=== PATIENT | male | born 1950 | race African-American/Black ===

== ENCOUNTER 2018-01-23 13:06 | Inpatient (IN) | payer OTHER ==
[2018-01-23 16:59] LABS: ADD MAN DIFF? NO
[2018-01-23 17:02] LABS: WHITE BLOOD COUNT 9.2 10^3/ul (4.8-10.8)
[2018-01-23 17:02] LABS: BASOPHILS % 0.2 % (0.0-2.0); EOSINOPHILS # 0.1 10^3/ul (0.0-0.5); EOSINOPHILS % 1.1 % (0.0-7.0); HEMATOCRIT 39.3 % (42.0-52.0); HEMOGLOBIN 12.9 g/dl (14.0-18.0); LYMPHOCYTES # 1.5 10^3/ul (0.8-2.9); LYMPHOCYTES % 16.3 % (15.0-51.0); MEAN CORPUSCULAR HEMOGLOBIN 30.2 pg (29.0-33.0); MEAN CORPUSCULAR HGB CONC 32.8 g/dl (32.0-37.0); MEAN PLATELET VOLUME 10.3 fl (7.4-10.4); MONOCYTE # 0.8 10^3/ul (0.3-0.9); MONOCYTES % 9.1 % (0.0-11.0); NEUTROPHIL # 6.7 10^3/ul (1.6-7.5); PLATELET COUNT 192 10^3/UL (140-415); RED BLOOD COUNT 4.27 10^6/ul (4.70-6.10); RED CELL DISTRIBUTION WIDTH 13.4 % (11.5-14.5)
[2018-01-23 17:24] LABS: ALANINE AMINOTRANSFERASE 23 IU/L (13-69); ALBUMIN/GLOBULIN RATIO 1.02; ALKALINE PHOSPHATASE 94 IU/L (42-121); ANION GAP 10 (5-13); ASPARTATE AMINO TRANSFERASE 27 IU/L (15-46); BILIRUBIN,INDIRECT 0.1 mg/dl (0-1.1); BILIRUBIN,TOTAL 0.1 mg/dl (0.2-1.3); BLOOD UREA NITROGEN 48 mg/dl (7-20); CALCIUM 8.9 mg/dl (8.4-10.2); CARBON DIOXIDE 26 mmol/L (21-31); CHLORIDE 105 mmol/L (97-110); Estimated GFR 21 mL/min (>60); GLUCOSE 125 mg/dl (70-220); LIPASE 84 U/L (23-300); POTASSIUM 5.3 mmol/L (3.5-5.1); SODIUM 141 mmol/L (135-144); TOTAL PROTEIN 7.9 g/dl (6.1-8.1)
[2018-01-23] MEDS: SOD CHLORIDE 0.9% 500 ML IV (17:27)
[2018-01-23] MEDS: ENALAPRILAT 1.25 MG INJ IV (17:27)
[2018-01-23 17:35] LABS: TROPONIN-I < 0.012 ng/ml (0.000-0.120)
[2018-01-23] MEDS: HYDROCHLOROTHIAZIDE 25 MG TAB PO (17:39)
[2018-01-23] MEDS: niCARdipine-NS 0.1MG/ML DRIP 200 ML IV ×2 (18:52→23:55)
[2018-01-23 19:15] LABS: HAAIG REFLEX REFLEX FILED
[2018-01-23 19:26] LABS: HEMOGLOBIN A1C 5.2 % (0-5.9)
[2018-01-23] MEDS ORDERED: BISACODYL (EC) 5 MG TAB PO (19:30)
[2018-01-23] MEDS ORDERED: DOCUSATE SODIUM 100 MG CAP PO (19:30)
[2018-01-23] MEDS ORDERED: NITROGLYCERIN (SL) 0.4 MG TAB SL (19:30)
[2018-01-23] MEDS ORDERED: BISACODYL 10 MG SUPP PR (19:30)
[2018-01-23] MEDS ORDERED: MAGNESIUM HYDROXIDE 30ML CUP PO (19:30)
[2018-01-23] MEDS ORDERED: ACETAMINOPHEN 650 MG SUPP PR (19:30)
[2018-01-23] MEDS ORDERED: ACETAMINOPHEN 325 MG TAB PO (19:30)
[2018-01-23] MEDS ORDERED: ONDANSETRON 4 MG INJ IV (19:30)
[2018-01-23 20:00] LABS: HEPATITIS B SURFACE ANTIGEN NEGATIVE (NEGATIVE)
[2018-01-23 20:18] LABS: HEPATITIS B CORE ANTIBODY REACTIVE (NEGATIVE); HEPATITIS C VIRAL ANTIBODY REACTIVE (NEGATIVE)
[2018-01-23] MEDS ORDERED: INSULIN ASPART [NOVOLOG] 3 ML PEN SC (21:00)
[2018-01-23 21:48] LABS: SODIUM,URINE RANDOM 135 mmol/L (30-90)
[2018-01-23 21:48] LABS: CREATININE,URINE RANDOM 33.24 mg/dl (20-370)
[2018-01-23 21:49] LABS: CREATININE,URINE RANDOM 33.31 mg/dl (20-370); PROTEIN/CREAT RATIO 1.65 RATIO
[2018-01-23] MEDS: NA POLYST SULFON 15 GM/60 ML BTL PO (22:25)
[2018-01-23] MEDS: SOD CHLORIDE 0.45% 1,000 ML IV (22:26)
[2018-01-24] MEDS: ACCU-CHEK XX (02:33)
[2018-01-24] MEDS: PANTOPRAZOLE 40 MG INJ IV (06:04)
[2018-01-24 06:51] LABS: ADD MAN DIFF? NO
[2018-01-24 06:55] LABS: BASOPHILS % 0.3 % (0.0-2.0); EOSINOPHILS # 0.2 10^3/ul (0.0-0.5); EOSINOPHILS % 2.7 % (0.0-7.0); HEMATOCRIT 32.8 % (42.0-52.0); HEMOGLOBIN 10.9 g/dl (14.0-18.0); LYMPHOCYTES # 1.4 10^3/ul (0.8-2.9); MEAN CORPUSCULAR HEMOGLOBIN 30.3 pg (29.0-33.0); MEAN CORPUSCULAR HGB CONC 33.2 g/dl (32.0-37.0); MEAN CORPUSCULAR VOLUME 91.1 fl (82.0-101.0); MEAN PLATELET VOLUME 10.7 fl (7.4-10.4); MONOCYTE # 0.5 10^3/ul (0.3-0.9); MONOCYTES % 6.7 % (0.0-11.0); NEUTROPHIL # 4.9 10^3/ul (1.6-7.5); PLATELET COUNT 204 10^3/UL (140-415); RED CELL DISTRIBUTION WIDTH 13.4 % (11.5-14.5)
[2018-01-24 07:03] LABS: ALANINE AMINOTRANSFERASE 27 IU/L (13-69); ALBUMIN 3.6 g/dl (3.3-4.9); ALBUMIN/GLOBULIN RATIO 1.05; ALKALINE PHOSPHATASE 80 IU/L (42-121); ANION GAP 9 (5-13); ASPARTATE AMINO TRANSFERASE 35 IU/L (15-46); BILIRUBIN,INDIRECT 0.1 mg/dl (0-1.1); BILIRUBIN,TOTAL 0.1 mg/dl (0.2-1.3); BLOOD UREA NITROGEN 43 mg/dl (7-20); CALCIUM 8.4 mg/dl (8.4-10.2); CARBON DIOXIDE 26 mmol/L (21-31); CHLORIDE 109 mmol/L (97-110); CREATININE 3.02 mg/dl (0.61-1.24); Estimated GFR 25 mL/min (>60); GLUCOSE 89 mg/dl (70-220); POTASSIUM 4.2 mmol/L (3.5-5.1); SODIUM 144 mmol/L (135-144)
[2018-01-24] MEDS: ENOXAPARIN 30 MG/0.3 ML SYG SC (08:27)
[2018-01-24] MEDS: NIFEdipine (XL) 90 MG TAB PO (10:45)
[2018-01-24] MEDS: niCARdipine 25 MG in SOD CHLORIDE 0.9% 240 ML IV (10:46)
[2018-01-24] MEDS: METHADONE 10 MG TAB PO (13:53)
[2018-01-24 18:05] LABS: ADD UMIC YES; UR ASCORBIC ACID NEGATIVE (NEGATIVE); UR BILIRUBIN (Dip) NEGATIVE (NEGATIVE); UR BLOOD (Dip) NEGATIVE (NEGATIVE); UR CLARITY CLEAR (CLEAR); UR COLOR YELLOW (YELLOW); UR GLUCOSE (Dip) 1+ mg/dL (NEGATIVE); UR KETONES (Dip) NEGATIVE (NEGATIVE); UR LEUKOCYTE ESTERASE (Dip) NEGATIVE Leu/ul (NEGATIVE); UR NITRITE (Dip) NEGATIVE (NEGATIVE); UR RBC 4 /HPF (0-5); UR SPECIFIC GRAVITY (Dip) 1.012 (1.003-1.030); UR TOTAL PROTEIN (Dip) 2+ mg/dl (NEGATIVE); UR UROBILINOGEN (Dip) NEGATIVE (NEGATIVE); UR WBC 1 /HPF (0-5)
[2018-01-24] MEDS: SOD CHLORIDE 0.45% 1,000 ML IV (22:14)
[2018-01-25] MEDS: ACCU-CHEK XX ×2 (02:00→23:55)
[2018-01-25 04:34] LABS: ADD MAN DIFF? NO
[2018-01-25 04:38] LABS: WHITE BLOOD COUNT 7.3 10^3/ul (4.8-10.8)
[2018-01-25 04:38] LABS: BASOPHILS % 0.4 % (0.0-2.0); EOSINOPHILS # 0.2 10^3/ul (0.0-0.5); EOSINOPHILS % 2.1 % (0.0-7.0); HEMATOCRIT 30.8 % (42.0-52.0); HEMOGLOBIN 10.5 g/dl (14.0-18.0); LYMPHOCYTES # 1.8 10^3/ul (0.8-2.9); LYMPHOCYTES % 24.4 % (15.0-51.0); MEAN CORPUSCULAR HEMOGLOBIN 30.8 pg (29.0-33.0); MEAN CORPUSCULAR HGB CONC 34.1 g/dl (32.0-37.0); MEAN CORPUSCULAR VOLUME 90.3 fl (82.0-101.0); MEAN PLATELET VOLUME 10.6 fl (7.4-10.4); MONOCYTE # 0.5 10^3/ul (0.3-0.9); MONOCYTES % 7.1 % (0.0-11.0); NEUTROPHIL # 4.8 10^3/ul (1.6-7.5); NEUTROPHILS % 65.9 % (39.0-77.0); PLATELET COUNT 183 10^3/UL (140-415); RED BLOOD COUNT 3.41 10^6/ul (4.70-6.10); RED CELL DISTRIBUTION WIDTH 13.8 % (11.5-14.5)
[2018-01-25 04:59] LABS: MAGNESIUM 1.7 mg/dl (1.7-2.5)
[2018-01-25 04:59] LABS: PHOSPHORUS 4.6 mg/dl (2.5-4.9)
[2018-01-25 05:02] LABS: ANION GAP 9 (5-13); BLOOD UREA NITROGEN 47 mg/dl (7-20); CALCIUM 8.1 mg/dl (8.4-10.2); CARBON DIOXIDE 26 mmol/L (21-31); CHLORIDE 105 mmol/L (97-110); CREATININE 3.25 mg/dl (0.61-1.24); Estimated GFR 23 mL/min (>60); GLUCOSE 88 mg/dl (70-220); POTASSIUM 4.4 mmol/L (3.5-5.1); SODIUM 140 mmol/L (135-144)
[2018-01-25] MEDS: PANTOPRAZOLE (EC) 40 MG TAB PO (05:19)
[2018-01-25] MEDS: METHADONE 10 MG TAB PO (09:09)
[2018-01-25] MEDS: ENOXAPARIN 30 MG/0.3 ML SYG SC (09:11)
[2018-01-25] MEDS: NIFEdipine (XL) 90 MG TAB PO (09:27)
[2018-01-25] MEDS: SOD CHLORIDE 0.45% 1,000 ML IV (18:42)
[2018-01-26] MEDS: PANTOPRAZOLE (EC) 40 MG TAB PO (05:40)
[2018-01-26 09:42] LABS: ADD MAN DIFF? NO
[2018-01-26 09:44] LABS: WHITE BLOOD COUNT 9.3 10^3/ul (4.8-10.8)
[2018-01-26 09:44] LABS: BASOPHILS % 0.2 % (0.0-2.0); EOSINOPHILS # 0.2 10^3/ul (0.0-0.5); EOSINOPHILS % 2.2 % (0.0-7.0); HEMATOCRIT 35.5 % (42.0-52.0); HEMOGLOBIN 11.9 g/dl (14.0-18.0); LYMPHOCYTES # 1.4 10^3/ul (0.8-2.9); LYMPHOCYTES % 15.5 % (15.0-51.0); MEAN CORPUSCULAR HEMOGLOBIN 30.3 pg (29.0-33.0); MEAN CORPUSCULAR HGB CONC 33.5 g/dl (32.0-37.0); MEAN CORPUSCULAR VOLUME 90.3 fl (82.0-101.0); MEAN PLATELET VOLUME 10.4 fl (7.4-10.4); MONOCYTE # 0.6 10^3/ul (0.3-0.9); MONOCYTES % 5.9 % (0.0-11.0); NEUTROPHIL # 7.1 10^3/ul (1.6-7.5); PLATELET COUNT 212 10^3/UL (140-415); RED BLOOD COUNT 3.93 10^6/ul (4.70-6.10); RED CELL DISTRIBUTION WIDTH 13.6 % (11.5-14.5)
[2018-01-26] MEDS: NIFEdipine (XL) 90 MG TAB PO (09:45)
[2018-01-26] MEDS: METHADONE 10 MG TAB PO (09:47)
[2018-01-26] MEDS: ENOXAPARIN 30 MG/0.3 ML SYG SC (09:52)
[2018-01-26 10:06] LABS: ANION GAP 8 (5-13); BLOOD UREA NITROGEN 51 mg/dl (7-20); CALCIUM 8.7 mg/dl (8.4-10.2); CARBON DIOXIDE 23 mmol/L (21-31); CHLORIDE 106 mmol/L (97-110); CREATININE 3.17 mg/dl (0.61-1.24); Estimated GFR 24 mL/min (>60); GLUCOSE 108 mg/dl (70-220); POTASSIUM 4.7 mmol/L (3.5-5.1); SODIUM 137 mmol/L (135-144)
[2018-01-26] MEDS: SOD CHLORIDE 0.45% 1,000 ML IV (20:01)
[2018-01-26] MEDS: ACCU-CHEK XX (20:02)
[2018-01-27] MEDS: PANTOPRAZOLE (EC) 40 MG TAB PO (05:15)
[2018-01-27] MEDS: NIFEdipine (XL) 90 MG TAB PO (09:22)
[2018-01-27] MEDS: ENOXAPARIN 30 MG/0.3 ML SYG SC (09:23)
[2018-01-27] MEDS: METHADONE 10 MG TAB PO (12:52)
[2018-01-27 18:20] LABS: PTH CALCIUM 8.4 mg/dL (8.6-10.3)
[2018-01-28 07:01] LABS: PTH INTACT 191 pg/mL (14-64)
== END 2018-01-27 18:10 | disposition home or self-care (01) | DRG 305 ==
LOC: PP2 01-25 17:55 → E/R 13:06 → ICU 18:19
DX: I16.1 Hypertensive emergency (principal); N17.9 Acute kidney failure, unspecified; F11.20 Opioid dependence, uncomplicated; I12.9 Hypertensive chronic kidney disease with stage 1 through stage 4 chronic kidney disease, or unspecified chronic kidney disease; N18.9 Chronic kidney disease, unspecified; E87.5 Hyperkalemia; D63.1 Anemia in chronic kidney disease; E11.22 Type 2 diabetes mellitus with diabetic chronic kidney disease; F17.200 Nicotine dependence, unspecified, uncomplicated; I25.10 Atherosclerotic heart disease of native coronary artery without angina pectoris; Z95.5 Presence of coronary angioplasty implant and graft; Z79.4 Long term (current) use of insulin
CPT/HCPCS: 36415; 71045; 76775; 80048; 80053; 81001; 81003; 82570; 82962; 83036; 83690; 83735; 83970; 84100; 84155; 84300; 84484; 85025; 86704; 86709; 86803; 87081; 87340; 93005; 93306; 96374; 99291-25